=== PATIENT | female | born 1990 | race Caucasian/White ===

== ENCOUNTER 2021-11-13 19:27 | Emergency (ER) | payer BC, OTHER ==
[~2021-11-13] VITALS: Ht 160 cm; Wt 86.2 kg
[2021-11-13 21:46] VITALS: BP 129/83
[2021-11-13] MEDS ORDERED: IBUPROFEN 800 MG TAB PO ONE (22:00)
[2021-11-13] MEDS ORDERED: LIDOCAINE 1% HCL (LOCAL ANESTH.) INJ 20ML MDV IJ ONE (22:00)
[2021-11-13] MEDS ORDERED: ACETAMINOPHEN 500 MG TAB PO ONE (22:00)
== END 2021-11-13 22:36 | disposition home or self-care (01) ==
LOC: ER 19:29
DX: S01.81XA Laceration without foreign body of other part of head, initial encounter (principal); S02.5XXA Fracture of tooth (traumatic), initial encounter for closed fracture; E66.9 Obesity, unspecified; Z68.33 Body mass index [BMI] 33.0-33.9, adult; W01.0XXA Fall on same level from slipping, tripping and stumbling without subsequent striking against object, initial encounter; Y93.89 Activity, other specified; Y92.89 Other specified places as the place of occurrence of the external cause; Y99.8 Other external cause status
CPT/HCPCS: 12011; 99283; J2001